=== PATIENT | female | born 1990 | race Caucasian/White ===

== ENCOUNTER 2020-03-05 13:02 | Outpatient (REF) | payer OTHER, SELFPAY | END 2020-03-05 13:03 | disposition home or self-care (01) | LOC: HO.LAB 13:02 | PROVIDERS: Visit Provider Internal Medicine | DX: Z20.828 Contact with and (suspected) exposure to other viral communicable diseases (principal) | CPT/HCPCS: C9803; U0003 ==

== ENCOUNTER 2020-03-18 10:03 | Outpatient (REF) | payer OTHER, SELFPAY | END 2020-03-18 10:04 | disposition home or self-care (01) | LOC: HO.LAB 10:03 | PROVIDERS: Visit Provider Internal Medicine | DX: Z20.828 Contact with and (suspected) exposure to other viral communicable diseases (principal) | CPT/HCPCS: C9803; U0003 ==

== ENCOUNTER 2020-04-02 12:58 | Outpatient (REF) | payer OTHER, SELFPAY | END 2020-04-02 12:59 | disposition home or self-care (01) | LOC: HO.LAB 12:58 | PROVIDERS: PCP Family Medicine; Visit Provider Internal Medicine | DX: Z20.822 Contact with and (suspected) exposure to COVID-19 (principal) | CPT/HCPCS: 36415; C9803; U0003 ==

== ENCOUNTER 2021-07-02 10:30 | Outpatient (REF) | payer OTHER, MEDICAID, SELFPAY ==
[2021-07-02 11:26] LABS: COVID-19 Test Positive (Negative)
== END 2021-07-02 10:31 | disposition home or self-care (01) ==
LOC: HO.LAB 10:30
PROVIDERS: Visit Provider Internal Medicine
DX: Z20.822 Contact with and (suspected) exposure to COVID-19 (principal)
CPT/HCPCS: 87635; C9803

== ENCOUNTER 2021-08-25 14:38 | Outpatient (REF) | payer MEDICAID, SELFPAY ==
[2021-08-25 15:18] LABS: COVID-19 Test Negative (Negative)
== END 2021-08-25 14:39 | disposition home or self-care (01) ==
LOC: HO.LAB 14:38
PROVIDERS: Visit Provider Internal Medicine
DX: Z20.822 Contact with and (suspected) exposure to COVID-19 (principal)
CPT/HCPCS: 87635; C9803